=== PATIENT | male | born 1960 | race African-American/Black ===

== ENCOUNTER 2023-03-13 03:42 | Observation (INO) | payer OTHER ==
[2023-03-13] MEDS ORDERED: DIPHTH,PERTUSS(ACELL),TET 0.5 ML DISP.SYRIN IM ONE ×2 (04:26→04:54)
[2023-03-13 05:25] LABS: BASO % 0.3 % (0-2.0); EOS % 0.1 % (0-4.5); HEMATOCRIT 42.3 % (35.4-49); HEMOGLOBIN 13.9 GM/dL (11.7-16.9); MCH 30.9 pg (25.7-33.7); MCHC 32.8 g/dl (32.0-35.9); MONO % 6.5 % (3.8-10.2); NEUT % 84.1 % (42.8-82.8); PLATELET COUNT 182 10^3/uL (134-434); RBC 4.51 M/mm3 (4.00-5.60); RDW 13.7 % (11.9-15.9); WHITE BLOOD COUNT 12.1 K/mm3 (4.0-10.0)
[2023-03-13 05:33] LABS: INR 1.1 (0.83-1.09); PROTHROMBIN TIME (PATIENT) 12.8 SEC (9.7-13.0)
[2023-03-13 05:36] LABS: ACTIVATED PTT 25.7 SECONDS (25.2-36.5)
[2023-03-13 06:10] LABS: CHLORIDE 104 mmol/L (98-107); SODIUM 138 mmol/L (136-145)
[2023-03-13 06:12] LABS: ALBUMIN 4.4 g/dl (3.4-5.0); CALCIUM 9.3 mg/dL (8.5-10.1)
[2023-03-13 06:13] LABS: ANION GAP 7 mmol/L (4-13); BLOOD UREA NITROGEN 17.5 mg/dL (7-18); CO2 27 mmol/L (21-32); GLUCOSE,RANDOM 133 mg/dL (74-106)
[2023-03-13 06:15] LABS: CREATININE 1.4 mg/dL (0.55-1.3)
[2023-03-13 06:16] LABS: SGOT/AST 36 U/L (15-37); SGPT/ALT 29 U/L (13-61)
[2023-03-13 06:17] LABS: BILIRUBIN,TOTAL 0.4 mg/dL (0.2-1); TOT PROT 7.3 g/dl (6.4-8.2)
[2023-03-13 06:18] LABS: ALK PHOS 46 U/L (45-117)
[2023-03-13] MEDS ORDERED: ACETAMINOPHEN 1000 MG/100 ML BAG IVPB ONE (07:34)
[2023-03-13] MEDS ORDERED: ONDANSETRON 4 MG/2 ML VIAL IVPUSH ONE (07:34)
[2023-03-13] MEDS ORDERED: ONDANSETRON 4 MG/2 ML VIAL ONE (08:33)
[2023-03-13] MEDS ORDERED: ACETAMINOPHEN INJECTION 100 ML IVPB ONE (08:33)
[2023-03-13 14:41] LABS: CHOLESTEROL 232 mg/dL (50-200)
[2023-03-13 14:43] LABS: LDL CHOLESTEROL (ONLY SJRH) 116 mg/dL (5-100)
[2023-03-13 14:44] LABS: HDL CHOLESTEROL 101 mg/dL (40-60)
[2023-03-13 14:46] LABS: N-TERMINAL BNP < 5.0 pg/ml (5-125)
[2023-03-13 15:06] VITALS: BMI 22.4
[2023-03-13] MEDS ORDERED: SODIUM CHLORIDE 1,000 ML IV SCH (16:45)
[2023-03-13] MEDS ORDERED: ACETAMINOPHEN 325 MG TABLET (FP) PO ONE (21:43)
[2023-03-13] MEDS ORDERED: ATORVASTATIN CA 20 MG TABLET (FP) PO SCH (22:00)
[2023-03-14 08:32] LABS: BASO % 0.3 % (0-2.0); EOS % 0.3 % (0-4.5); HEMOGLOBIN 13.4 GM/dL (11.7-16.9); LYMPH % 20.7 % (8-40); MCH 31.8 pg (25.7-33.7); MCHC 34.4 g/dl (32.0-35.9); MEAN CELL VOLUME 92.6 fl (80-96); MEAN PLT VOLUME 8.5 fl (7.5-11.1); MONO % 8.4 % (3.8-10.2); NEUT % 70.3 % (42.8-82.8); PLATELET COUNT 200 10^3/uL (134-434); RBC 4.22 M/mm3 (4.00-5.60); RDW 13.7 % (11.9-15.9); WHITE BLOOD COUNT 7.1 K/mm3 (4.0-10.0)
[2023-03-14 08:37] LABS: POTASSIUM 4.3 mmol/L (3.5-5.1)
[2023-03-14 08:46] LABS: ALBUMIN 4.2 g/dl (3.4-5.0); BLOOD UREA NITROGEN 16.5 mg/dL (7-18); CREATININE 1.3 mg/dL (0.55-1.3)
[2023-03-14 08:47] LABS: BILIRUBIN,TOTAL 0.7 mg/dL (0.2-1); TOT PROT 7.2 g/dl (6.4-8.2)
[2023-03-14 08:48] LABS: CALCIUM 9.1 mg/dL (8.5-10.1)
[2023-03-14 09:48] VITALS: BP 140/97; PULSE 75; RESP 16; TEMP 98.8
[2023-03-14] MEDS ORDERED: RAMIPRIL 5 MG CAPSULE PO SCH (10:00)
[2023-03-14] MEDS ORDERED: ASPIRIN 81 MG CHEWABLE TABLETS PO SCH (10:00)
[2023-03-14] MEDS ORDERED: ENOXAPARIN NA (PORCINE) 40 MG/0.4 ML DISP.SYRIN SQ SCH (10:00)
== END 2023-03-14 12:27 | disposition home or self-care (01) ==
LOC: JER 03:42 → INTOOBSV 06:39 → UNDOADMOB 06:39 → JERBED 06:39 → J4W 12:03 → JERBED 03-14 09:37 → J4W 03-14 09:37
PROVIDERS: ADMIT Internal Medicine; ATTEND Internal Medicine
PROC: 0KQ10ZZ Repair Facial Muscle, Open Approach (ICD-10-PCS; principal; 2023-03-14)
PROC: 3E033NZ Introduction of Analgesics, Hypnotics, Sedatives into Peripheral Vein, Percutaneous Approach (ICD-10-PCS; 2023-03-14)
PROC: 3E023GC Introduction of Other Therapeutic Substance into Muscle, Percutaneous Approach (ICD-10-PCS; 2023-03-14)
PROC: 3E033GC Introduction of Other Therapeutic Substance into Peripheral Vein, Percutaneous Approach (ICD-10-PCS; 2023-03-14)
PROC: 0HQ1XZZ Repair Face Skin, External Approach (ICD-10-PCS; 2023-03-14)
DX: S01.111A Laceration without foreign body of right eyelid and periocular area, initial encounter (principal); R79.9 Abnormal finding of blood chemistry, unspecified; I10 Essential (primary) hypertension; E78.5 Hyperlipidemia, unspecified; R51.9 Headache, unspecified; R55 Syncope and collapse; M54.2 Cervicalgia; R07.89 Other chest pain; W18.30XA Fall on same level, unspecified, initial encounter; Y93.89 Activity, other specified; Y92.89 Other specified places as the place of occurrence of the external cause; Y99.0 Civilian activity done for income or pay; Z23 Encounter for immunization
CPT/HCPCS: 0241U-QW; 12052; 36415; 70450-TC; 70486-TC; 71046-TC-FY; 72125-TC; 80053; 80061; 82550; 82553; 83036; 83880; 84443; 84484; 85025; 85610; 85730; 90471; 90715; 93005; 93010; 93306-TC; 93880-TC; 96372; 96374; 96375; 99285-25; G0378; J0131

== ENCOUNTER 2023-09-18 19:43 | Emergency (ER) | payer OTHER ==
[2023-09-18 19:50] VITALS: BP 128/78; PULSE 72; RESP 18; TEMP 98.1; BMI 23.0
[2023-09-18] MEDS ORDERED: TRANEXAMIC ACID 1000 MG/10 ML VIAL ONE (20:54)
[2023-09-18] MEDS: TRANEXAMIC ACID 1000 MG/10 ML VIAL IVPUSH ONE (21:03)
== END 2023-09-18 22:25 | disposition home or self-care (01) ==
LOC: JER 19:43
PROC: 3E033GC Introduction of Other Therapeutic Substance into Peripheral Vein, Percutaneous Approach (ICD-10-PCS; principal; 2023-09-18)
DX: K91.840 Postprocedural hemorrhage of a digestive system organ or structure following a digestive system procedure (principal)
CPT/HCPCS: 99284-25